=== PATIENT | male | born 1970 | race African-American/Black ===

== ENCOUNTER 2016-11-22 01:06 | Emergency (ER) | payer OTHER ==
[~2016-11-22] VITALS: Ht 167.6 cm; Wt 79.5 kg
[~2016-11-22 01:06] MED LIST: AMLOD-VALSA-HC1 EAC1 PO; AMLODIPINE BESY10 MG PO; AMLODIPINE BESYL5 MG PO; APRESOLINE50 MG PO; ASPIRIN325 MG PO; AUGMENTIN875 MG PO; AZITHROMYCIN250 MG PO; CARVEDILOL6.25 MG PO; CIPRO500 MG PO; CLARITIN,ALAVAR10 MG PO; DESYREL 150 MG150 MG PO; FLEXERIL5 MG PO; FLUTICASONE PRO16 GM BOTH NARES; HYDROCHLOROTHIA25 MG PO; HYDROCHLOROTHIA50 MG PO; HYGROTON25 MG PO; IBUPROFEN400 MG PO; IBUPROFEN800 MG PO; LISINOPRIL20 MG PO; METOPROLOL TART25 MG PO; MOTRIN800 MG PO; NICOTINE PATCH1 EAC1 TD; NORMODYNE,TRAN200 MG PO; NORVASC10 MG PO; PEN-VEE K,VEET500 MG PO; SEROQUEL100 MG PO; VICODIN 5-5001 EACH PO; VITAMIN D2000 INTUN PO; ZESTORETIC 20-1 EAC1 NG; ZESTRIL,PRINIVI10 M1 PO; ZOLPIDEM TARTRAT5 MG PO; ZYRTEC10 M3 PO
[2016-11-22] MEDS ORDERED: AMOXICILLIN500 MG PO (02:16)
[2016-11-22 03:40] LABS: HEMATOCRIT 34.7 % (38.0-50.0); MCH 31.8 PG (29.0-34.0); MCHC 33.4 G/DL (30.0-36.0); MCV 95.1 FL (86-99); MEAN PLAT.VOLUME 9.4 uM^3 (9.0-12.4); PLATELET COUNT 286 K/uL (156-360); RBC DIS.WIDTH-SD 42.3 % (39-53); RED BLOOD COUNT 3.65 M/uL (4.00-5.50); WHITE BLOOD COUNT 8.7 K/uL (4.1-10.2)
[2016-11-22 03:49] LABS: INTER. NORMALIZED RATIO 1.1; PROTHROMBIN TIME 11.9 SEC (10.2-12.9)
[2016-11-22 06:39] VITALS: BP 147/94
== END 2016-11-22 06:41 | disposition home or self-care (01) ==
LOC: EME → EDBD 01:06 → EME 02:31
PROVIDERS: Physician Assistant
PROC: 2Y41X5Z Packing of Nasal Region using Packing Material (ICD-10-PCS; principal; 2016-11-22)
DX: R04.0 Epistaxis (principal); I10 Essential (primary) hypertension; F17.200 Nicotine dependence, unspecified, uncomplicated
CPT/HCPCS: 85027; 85610; 99281; 99285; J0360; J2270; J2405; J3010; J7030

== ENCOUNTER 2017-02-27 03:01 | Emergency (ER) | payer OTHER ==
[~2017-02-27] VITALS: Ht 165.1 cm; Wt 80.0 kg
[~2017-02-27 03:01] MED LIST changes: +AMOXICILLIN500 MG PO
[2017-02-27 04:18] VITALS: BP 139/101
== END 2017-02-27 04:18 | disposition home or self-care (01) ==
LOC: EME → EXP 03:01 → EDBD 03:01 → EME 03:01 → EXP 04:18
DX: S61.011A Laceration without foreign body of right thumb without damage to nail, initial encounter (principal); W22.09XA Striking against other stationary object, initial encounter; Z23 Encounter for immunization
CPT/HCPCS: 99281; 99284

== ENCOUNTER 2017-10-16 04:26 | Emergency (ER) | payer OTHER ==
[~2017-10-16] VITALS: Ht 165.1 cm; Wt 79.5 kg
[2017-10-16 05:06] LABS: HEMATOCRIT 35.9 % (38.0-50.0); HEMOGLOBIN 12.8 G/DL (12.5-16.6); MCH 34.5 PG (29.0-34.0); MCHC 35.7 G/DL (30.0-36.0); MCV 96.8 FL (86-99); PLATELET COUNT 249 K/uL (156-360); RBC DIS.WIDTH-CV 12.4 % (11.8-14.6); RBC DIS.WIDTH-SD 44.2 % (39-53); RED BLOOD COUNT 3.71 M/uL (4.00-5.50); WHITE BLOOD COUNT 5.5 K/uL (4.1-10.2)
[2017-10-16 05:43] LABS: CHLORIDE 106 mEq/L (99-109); POTASSIUM 3.2 mEq/L (3.7-5.4); SODIUM 139 mEq/L (136-147)
[2017-10-16 05:44] LABS: GLUCOSE 97 mg/dL (70-99)
[2017-10-16 05:48] LABS: CREATININE 1.1 mg/dL (0.6-1.3); GFR ESTIMATE (CALCULATED) > 59 mL/min/ (58.99-99999)
[2017-10-16 05:49] LABS: UREA NITROGEN (BUN) 17 mg/dL (9-23)
[2017-10-16] MEDS ORDERED: PERCOCET 5/31 TABLET PO (07:51)
[2017-10-16] MEDS ORDERED: KEFLEX500 MG PO (08:00)
[2017-10-16 09:10] VITALS: BP 159/90
== END 2017-10-16 09:13 | disposition home or self-care (01) ==
LOC: EME → EDBD 04:26 → EME 09:13
PROVIDERS: Physician Assistant
PROC: 0HQLXZZ Repair Left Lower Leg Skin, External Approach (ICD-10-PCS; principal; 2017-10-16)
DX: S81.812A Laceration without foreign body, left lower leg, initial encounter (principal); W26.0XXA Contact with knife, initial encounter; R20.2 Paresthesia of skin; I10 Essential (primary) hypertension; F17.200 Nicotine dependence, unspecified, uncomplicated
CPT/HCPCS: 73706; 80048; 85027; 99281; 99285; J0690; J2405; J3010; J7030

== ENCOUNTER 2017-10-27 17:17 | Emergency (ER) | payer OTHER ==
[~2017-10-27] VITALS: Ht 167.6 cm; Wt 77.9 kg
[~2017-10-27 17:17] MED LIST changes: +KEFLEX500 MG PO; +PERCOCET 5/31 TABLET PO
[2017-10-27 21:44] LABS: HEMATOCRIT 36.5 % (38.0-50.0); HEMOGLOBIN 12.4 G/DL (12.5-16.6); MCH 33.4 PG (29.0-34.0); MCV 98.4 FL (86-99); RBC DIS.WIDTH-CV 13.2 % (11.8-14.6); RBC DIS.WIDTH-SD 46.8 % (39-53); RED BLOOD COUNT 3.71 M/uL (4.00-5.50); WHITE BLOOD COUNT 7.4 K/uL (4.1-10.2)
[2017-10-27 21:49] LABS: PLATELET COUNT 345 K/uL (156-360)
[2017-10-27 21:53] LABS: ALBUMIN 4.5 g/dL (3.2-4.8)
[2017-10-27 21:54] LABS: CHLORIDE 106 mEq/L (99-109); POTASSIUM 3.7 mEq/L (3.7-5.4); SODIUM 140 mEq/L (136-147)
[2017-10-27 21:56] LABS: GLUCOSE 79 mg/dL (70-99); TOTAL PROTEIN 7.9 g/dL (6.4-8.3)
[2017-10-27 21:59] LABS: ALKALINE PHOSPHATASE 74 IU/L (3-129)
[2017-10-27 22:00] LABS: CREATININE 1.1 mg/dL (0.6-1.3); GFR ESTIMATE (CALCULATED) > 59 mL/min/ (58.99-99999)
[2017-10-27 22:01] LABS: AST (GOT) 268 IU/L (2-34); DIRECT BILIRUBIN 0.4 mg/dL (0.0-0.3); UREA NITROGEN (BUN) 16 mg/dL (9-23)
[2017-10-27 22:03] LABS: ALT (GPT) 180 IU/L (3-49); INTER. NORMALIZED RATIO 1.1
[2017-10-28] MEDS ORDERED: BACTRIM,SEPT1 TABLET PO (01:44)
[2017-10-28] MEDS ORDERED: NORCO 7.5/321 TABLET PO (01:44)
[2017-10-28] MEDS ORDERED: KEFLEX500 MG PO (01:44)
[2017-10-28 02:03] VITALS: BP 147/98
== END 2017-10-28 02:06 | disposition home or self-care (01) ==
LOC: EME 17:17
PROVIDERS: Physician Assistant
DX: S81.812A Laceration without foreign body, left lower leg, initial encounter (principal); S80.12XA Contusion of left lower leg, initial encounter; W45.8XXA Other foreign body or object entering through skin, initial encounter; K21.9 Gastro-esophageal reflux disease without esophagitis; I10 Essential (primary) hypertension; F17.200 Nicotine dependence, unspecified, uncomplicated
CPT/HCPCS: 73701; 80048; 80076; 85027; 85610; 85730; 99281; 99285; J3010; J7030